=== PATIENT | female | born 1990 | race Caucasian/White ===

== ENCOUNTER 2018-09-12 18:57 | Emergency (ER) | payer OTHER ==
[~2018-09-12] VITALS: Ht 160 cm; Wt 65.9 kg
[2018-09-12 19:00] VITALS: BP 95/54
--- NOTE | 2018-09-12 19:10 | NUR ---
28 yo f bib self w/ c/o 10/10 bl knee pain since yesterday, left worse than right. reports that she has been doing Gonzales x years, worried that is what has caused the injury. pt does not recall any significant point where injury may have occurred. amb w/ steady gait. aaox4, gcs 15. giving urine sample at this time. reports that she does not have any tylenol or motrin at home. pt educated. rpeorts she has been using cbd oil but it is not effective. nad awaiting er md knott. will continue to monitor.
--- NOTE | 2018-09-12 19:15 | NUR ---
Pt report given to Mally RUBY. Transfer of care at this time.
--- NOTE | 2018-09-12 20:00 | NUR ---
PT SITTING UP IN BED, VITALS STABLE, PENDING D/C
[2018-09-12] MEDS ORDERED: KETOROLAC 60 MG/2 ML VIAL IM ONE (20:45)
--- NOTE | 2018-09-12 21:18 | NUR ---
Patient discharged with v/s stable. Written and verbal after care instructions given and explained. Patient alert, oriented and verbalized understanding of instructions. Ambulatory with steady gait. All questions addressed prior to discharge. ID band removed. Patient advised to follow up with PMD. Rx of MOTRIN AND NORCO given. Patient educated on indication of medication including possible reaction and side effects. Opportunity to ask questions provided and answered.
[2018-09-12 21:19] VITALS: BP 95/54
== END 2018-09-12 21:18 | disposition home or self-care (01) ==
LOC: MED 18:57
DX: M22.2X1 Patellofemoral disorders, right knee (principal); M22.2X2 Patellofemoral disorders, left knee
CPT/HCPCS: 96372; 99283; J1885